=== PATIENT | male | born 1955 | race Caucasian/White ===

== ENCOUNTER → 2017-05-11 | Outpatient (CLI) | payer BC, OTHER | END | disposition home or self-care (01) | LOC: PCVCIMAG 10:32 | DX: I73.9 Peripheral vascular disease, unspecified (principal); I77.1 Stricture of artery; L97.919 Non-pressure chronic ulcer of unspecified part of right lower leg with unspecified severity | CPT/HCPCS: 93925 ==

== ENCOUNTER → 2017-05-14 | Outpatient (CLI) | payer BC ==
[~2017-05-14] MED LIST: ASPIRIN 325 MG TABLET; CLOPIDOGREL BISULFATE 75 MG TABLET; DIAZEPAM 10 MG TABLET.; EPINEPHrine 1 MG/ML VIAL; EPTIFIBATIDE BOLUS 2,000 MCG/ML 10ML VIAL. IV; HEPARIN SODIUM 5,000 UNIT/ML VIAL for PCVC.; IODIXANOL 270 MG/ML 100 ML VIAL.; IV NORMAL SALINE 1000ML BAG 1,000 ML; LIDOCAINE 1% Multi-Dose 20 ML VIAL.; MIDAZOLAM HCL/PF 2 MG/2 ML VIAL.; WATER FOR INJECTION,STERILE 10 ML IJ; ceFAZolin SODIUM 1 GM VIAL; fentaNYL PF VIAL 100 MCG/2 ML VIAL; hydrALAZINE 20 MG/ML VIAL.
== END | disposition home or self-care (01) ==
LOC: PCVCINTER 06:58
DX: I70.213 Atherosclerosis of native arteries of extremities with intermittent claudication, bilateral legs (principal); I10 Essential (primary) hypertension; I70.1 Atherosclerosis of renal artery
CPT/HCPCS: 36252; 37186; 37227; 75716; 76937; 99152; 99153; C1725; C1751; C1757; C1760; C1769; C1876; C1885; C1887; C1894; C2628; J0171; J0360; J0690; J1327; J1644; J2250; J3010; J7030

== ENCOUNTER → 2017-09-24 | Outpatient (CLI) | payer BC | END | disposition home or self-care (01) | LOC: PCVCIMAG 11:22 | DX: I65.23 Occlusion and stenosis of bilateral carotid arteries (principal); I71.4 Abdominal aortic aneurysm, without rupture; I73.9 Peripheral vascular disease, unspecified; E78.5 Hyperlipidemia, unspecified; I70.8 Atherosclerosis of other arteries | CPT/HCPCS: 93880; 93926; 93978 ==

== ENCOUNTER → 2017-10-04 | Outpatient (CLI) | payer BC ==
[~2017-10-04] MED LIST changes: -ASPIRIN 325 MG TABLET; -CLOPIDOGREL BISULFATE 75 MG TABLET; +EPTIFIBATIDE 0 ML IV; -IV NORMAL SALINE 1000ML BAG 1,000 ML; +IV NORMAL SALINE 500ML BAG 500 ML; -LIDOCAINE 1% Multi-Dose 20 ML VIAL.; +LIDOCAINE 1% Multi-Dose 50 ML VIAL.; +NITROGLYCERIN PREMIX 250 ML IV; -WATER FOR INJECTION,STERILE 10 ML IJ; +WATER FOR INJECTION,STERILE 20 ML VIAL. IJ
== END | disposition home or self-care (01) ==
LOC: PCVCINTER 07:28
DX: I70.238 Atherosclerosis of native arteries of right leg with ulceration of other part of lower leg (principal); L97.819 Non-pressure chronic ulcer of other part of right lower leg with unspecified severity; I70.292 Other atherosclerosis of native arteries of extremities, left leg; I70.1 Atherosclerosis of renal artery; I10 Essential (primary) hypertension; I25.10 Atherosclerotic heart disease of native coronary artery without angina pectoris; I71.4 Abdominal aortic aneurysm, without rupture
CPT/HCPCS: 36252; 37186; 37227; 75716; 76937; 99152; 99153; C1725; C1751; C1757; C1760; C1769; C1781; C1874; C1876; C1885; C1887; C1894; J0171; J0360; J0690; J1327; J1644; J2250; J3010; J3490; J7040